=== PATIENT | female | born 1945 | race Caucasian/White ===

== ENCOUNTER 2019-01-21 14:11 | Inpatient (IN) ==
--- NOTE | 2019-01-21 14:52 | Diag Imaging Result Doc PS360 ---
EXAM: FLAT/UPRIGHT ABD/1 VIEW CHEST - 01/21/2019 HISTORY: pain constipation TECHNIQUE: Supine and upright abdomen one view chest COMPARISON: 03/05/2016 portable chest FINDINGS: There is mild gaseous small bowel distention. There is possible thickening of posterior markings along the colon. There are multiple air-fluid levels on the upright view. These findings may relate to enterocolitis. There is no free air identified. There are surgical clips at the right upper quadrant. There are postsurgical changes noted at the lumbar spine. Upright chest shows normal heart size. There are sternal wires from previous surgery. The lungs appear clear. There is no pleural effusion or pneumothorax identified. IMPRESSION: Bowel gas pattern which may relate to enterocolitis. Correlation with clinical evaluation is recommended. No evidence of acute cardiopulmonary disease. Electronically signed by Adrian Irizarry 01/21/2019 2:50 PM
[2019-01-21 15:32] LABS: BASO# 0.01 X1000 (0.0-0.2); BASO% 0.1 % (0.0-0.8); EOS# 0.06 X1000 (0.0-0.7); EOS% 0.6 % (0.0-10.0); HEMATOCRIT 36.6 % (37.0-47.0); IMM GRAN# 0.02 X1000 (0.0-0.04); IMM GRAN% 0.2 % (0.0-0.5); LYMPH# 1.62 X1000 (1.2-3.4); LYMPH% 17.2 % (20.5-51.1); MCH 28.7 PG (27-31); MCHC 32.8 g/dL (33-37); MCV 87.6 FL (81-99); MONO# 0.65 X1000 (0.11-0.59); MONO% 6.9 % (1.7-9.3); MPV 10.5 FL (7.4-10.4); NEUT# 7.04 X1000 (1.4-6.5); PLT 282 X1000 (130-400); RBC 4.18 XMIL (4.2-5.4); RDW 13.2 % (11.5-14.5)
[2019-01-21 16:14] LABS: AGAP 14; ALBUMIN 3.7 g/dL (3.5-5.0); ALKALINE PHOSPHATASE 186 U/L (32-104); BUN 15 mg/dL (8-22); CALCIUM 8.7 mg/dL (8.8-10.2); CHLORIDE 102 mmol/L (98-107); COSMO 289; CREATININE 0.8 mg/dL (0.5-0.9); ESTIMATED GFR > 60; GLUCOSE 217 mg/dL (70-104); GOT 18 U/L (10-30); GPT 19 U/L (10-36); LIPASE 13 U/L (13-60); POTASSIUM 3.3 mmol/L (3.5-5.1); SODIUM 141 mmol/L (136-145); TCO2 26 mmol/L (25-35)
[2019-01-21 16:34] LABS: OCCULT BLOOD 1 NEGATIVE (NEGATIVE)
--- NOTE | 2019-01-21 18:01 | Diag Imaging Result Doc PS360 ---
EXAM: CT ABD/PELVIS W/IV CONT ONLY - 01/21/2019 HISTORY: pain TECHNIQUE: CT abdomen/pelvis with intravenous contrast. No oral contrast administered per request of the referring provider. COMPARISON: 01/26/2017 CT renal stone search without contrast FINDINGS: The visualized lung bases appear essentially clear. The liver is mildly prominent in size but demonstrates homogeneous attenuation. There are no other substantial abnormalities of the liver, spleen, or adrenal glands identified. The pancreas is unremarkable except for some atrophic changes. The gallbladder surgically absent. The bilateral kidneys enhance homogeneously except for a small cyst at the upper left kidney. There is no hydronephrosis. There are no substantial enlarged lymph nodes identified. There is dilatation of proximal small bowel. The distal small bowel is not dilated. There is some wall thickening involving some of the distended small bowel. There is no specific obstructing lesion identified. Considerations include enteritis and/or small bowel obstruction. The appendix shows no obvious inflammation. There is mild uncomplicated colonic diverticulosis. There is no free air or abscess identified. There is a small amount of free fluid in the pelvis. IMPRESSION: Findings which may relate to enteritis and/or mid to distal small bowel obstruction. No abscess. No free air. Small amount of free fluid in pelvis. This exam was performed using automated exposure control, adjustment of mA or kV according to patient size, and/or use of iterative reconstruction technique. Electronically signed by Adrian Irizarry 01/21/2019 5:58 PM
[2019-01-21] MEDS: NS 1,000 ML IV SCH (18:45)
[2019-01-21] MEDS: LEVAQUIN 500 MG/D5W 500 MG/100 ML IVPB IV SCH (18:47)
[2019-01-21] MEDS: ZOFRAN IV PRN ×2 (18:55→23:03)
[2019-01-21 18:58] LABS: HEMOGLOBIN A1C 7.5 % (4.8-6.0)
[2019-01-21] MEDS: MORPHINE IV PRN ×2 (18:58→23:04)
--- NOTE | 2019-01-21 19:07 | PROVIDER DOCUMENTATION ---
This chart was entered by Mili Sharma Scribe, acting as scribe for Montrell Wills MD. HPI-Abdominal Pain/GI Problem - General Chief Complaint: Abdominal Pain Stated Complaint: EMTREME PAIN Time Seen by Provider: 01/21/19 16:26 Source: patient, family () Allergies/Adverse Reactions: Patient Allergies Allergy/AdvReac Type Severity Reaction Status Date / Time propoxyphene HCl * Allergy Severe Unknown Verified 09/09/18 19:51 [From Darvon] Sulfa (Sulfonamide Allergy Severe HIVES Verified 09/09/18 19:51 Antibiotics) Home Medications: Home Medication List Medication Instructions Recorded Confirmed Last Taken Type Lansoprazole [Prevacid] 30 mg PO DAILY 05/08/14 03/05/16 05/08/14 08:00 History Sumatriptan Succinate [Imitrex] 25 mg PO PRN PRN 05/08/14 03/05/16 05/07/14 History Hydrocodone/APAP 7.5 mg/325 mg 1 ea PO Q6H PRN PRN #14 tab 09/09/18 Unknown Rx [[place]-7.5] Tizanidine [Zanaflex] 4 mg PO Q8HR #14 tab 09/09/18 Unknown Rx - History of Present Illness-ABD Nature of Presenting Problems: 73 yowf presents to [facility] ed with c/o abdominal pain with nausea. pt sts has hx of SBO and has given herself a enema without relief. pt sts last bm was 1 week prior Abdominal Pain Onset Location: reports: generalized abdomen Pain Radiation: reports: no radiation Quality of Pain: reports: pressure, sharp Severity in ED: reports: moderate Onset/Duration: reports: 1 week ago Timing: reports: intermittent, getting worse (last night worsened) Activities at Onset: reports: light activity Exposure to sick contacts?: No Modifying Factors: improves with: nothing Associated Symptoms: reports: constipation, nausea. denies: back/neck pain, noa st pain, cough, diarrhea, fever/chills, shortness of breath, vomiting, weakness Last BM: 1 week ago Dark Stools Present?: reports: none noticed Rectal Bleeding: reports: none # of Diarrhea Episodes: 0 Rectal Pain: reports: none # of Vomiting Episodes: 0 (but severe nausea) Bruising or Bleeding Gums?: No Similar Symptoms Previously?: Yes (SBO) Recently seen or treated by another doctor?: No Review of Systems - Adult - REVIEW OF SYSTEMS - ADULT Constitutional: denies: chills, fever Eyes: reports: no symptoms reported Ears, Nose, Mouth & Throat: reports: no symptoms reported Cardiovascular: denies: chest pain, palpitations Respiratory: denies: cough, shortness of breath, wheezing Gastrointestinal: reports: see HPI, abdominal pain, constipation, nausea, poor appetite. denies: diarrhea, vomiting Genitourinary: reports: no symptoms reported Musculoskeletal: denies: back pain, neck pain Integumentary: reports: no symptoms reported Neurological: denies: dizziness/vertigo, headache/migraines Psychiatric: reports: no symptoms reported Endocrine: reports: no symptoms reported Hematologic/Lymphatic: reports: no symptoms reported Allergic/Immunologic: reports: no symptoms reported All Other Systems: Reviewed and Negative Past History - Adult - PAST MEDICAL HISTORY-ADULT Review of Records: reports: Nursing Assessment Review, Medications Reviewed Major Childhood Illnesses: reports: denies history Cardiovascular: reports: cardiac disease, HTN, hyperlipidemia, other (Stents) Respiratory: reports: COPD, sleep apnea Gastrointestinal: reports: GERD, inflammatory bowel disease, IBS, obstruction Obstetrical/Gynecological: reports: denies history Genitourinary: reports: denies history Musculoskeletal: reports: denies history Hand Dominance: Right Handed Neurological: reports: denies history Endocrine/Immune: reports: denies history Other Conditions: reports: denies history - PRIOR SURGERIES/PROCEDURES Surgical/Procedure History: reports: colonoscopy, CABG, cholecystectomy, other (Stents placed; ACDF; PLIF; ALIF) - PRIOR HOSPITALIZATIONS Prior Hospitalizations: reports: none - IMMUNIZATION STATUS Childhood Immunizations: See Nurse Assessment Flu Vaccine: See Nurse Assessment - FAMILY HISTORY Family History: reviewed, not pertinent - SOCIAL HISTORY Smoking: quit greater than 1 year Substance Use: alcohol Alcohol Use Frequency: occasionally Living Situation: family Physical Exam-General - PHYSICAL EXAM-ADULT Initial Vital Signs Reviewed: Yes - CONSTITUTIONAL General Appearance: alert, mild distress - EYES Eyes: PERRL/EOMI, pink conjunctivae - HEAD, EARS, NOSE, MOUTH & THROAT HENMT: moist mucous membranes, normal ENT inspection - NECK Neck: non-tender, full range of motion, supple, normal inspection - RESPIRATORY Respiratory: chest non-tender, lungs clear, normal breath sounds, no pleuratic chest pain, no respiratory distress, no accessory muscle use - CARDIOVASCULAR Cardiovascular: normal peripheral pulses, regular rate, rhythm - GASTROINTESTINAL (ABDOMEN) Abdominal Exam: normal bowel sounds, distended, guarding, tenderness (diffuse), McBurney's point tenderness, other (well healed scars to abdomen from multiple sx in past) - LYMPHATIC Lymphatic: no adenopathy - MUSCULOSKELETAL Back Exam: normal inspection, no CVA tenderness, no vertebral tenderness Extremity: normal range of motion, non-tender, normal gait, normal inspection, no pedal edema, no calf tenderness, normal capillary refill - SKIN Integumentary: normal color, normal turgor, warm/dry - NEUROLOGIC Neurologic: grossly normal, no motor/sensory deficits - PSYCHIATRIC Psych/Mental Status: normal mood/affect, normal thought content, normal thought process, oriented x 3 Progress - PLAN OF CARE/RESULTS Progress/Plan/Lab Results: Vital Signs - 8 hr 01/21/19 14:16 Temperature 98 F Pulse Rate 109 H Respiratory Rate 18 Blood Pressure 120/72 O2 Sat by Pulse Oximetry 95 Laboratory Results - last 24 hr 01/21/19 01/21/19 01/21/19 15:14 15:14 15:14 WBC 9.40 RBC 4.18 L Hgb 12.0 Hct 36.6 L MCV 87.6 MCH 28.7 MCHC 32.8 L RDW Std Deviation 13.2 Plt Count 282 MPV 10.5 H Immature Gran % (Auto) 0.2 Neut % (Auto) 75.0 Lymph % (Auto) 17.2 L [place] % (Auto) 6.9 Eos % (Auto) 0.6 Baso % (Auto) 0.1 Immature Gran # (Auto) 0.02 Neut # (Auto) 7.04 H Lymph # (Auto) 1.62 [place] # (Auto) 0.65 H Eos # (Auto) 0.06 Baso # (Auto) 0.01 Sodium 141 Potassium 3.3 L Chloride 102 Carbon Dioxide 26 Anion Gap 14 BUN 15 Creatinine 0.8 Estimated GFR/1.73 m2 > 60 BUN/Creatinine Ratio 19 Glucose 217 H Calculated Osmolality 289 Calcium 8.7 L Total Bilirubin 0.60 AST 18 ALT 19 Alkaline Phosphatase 186 H Total Protein 7.0 Albumin 3.7 Globulin 3.0 Albumin/Globulin Ratio 1.0 Amylase 26 Lipase 13 Orders Category Date Time Status NPO Diet 01/21/19 14:58 Active FLAT/UPRIGHT ABD/1 VIEW CHEST [RAD] Stat Exams 01/21/19 14:22 Completed AMYLASE [CHEM] Stat Lab 01/21/19 15:14 Completed CBC WITH ELECTRONIC DIFF [HEME] Stat Lab 01/21/19 15:14 Completed COMPREHENSIVE METABOLIC PANEL [CHEM] Stat Lab 01/21/19 15:14 Completed LIPASE [CHEM] Stat Lab 01/21/19 15:14 Completed Result Diagrams: 01/21/19 15:14 01/21/19 15:14 - XRAY 1 XRAY: Bilateral XRAY Study: Abdomen Impression: See EMR Report (EXAM: FLAT/UPRIGHT ABD/1 VIEW CHEST - 01/21/2019 HISTORY: pain constipation TECHNIQUE: Supine and upright abdomen one view chest COMPARISON: 03/05/2016 portable chest FINDINGS: There is mild gaseous small bowel distention. There is possible thickening of posterior markings along the colon. There are multiple air-fluid levels on the upright view. These findings may relate to enterocolitis. There is no free air identified. There are surgical clips at the right upper quadrant. There are postsurgical changes noted at the lumbar spine. Upright chest shows normal heart size. There are sternal wires from previous surgery. The lungs appear clear. There is no pleural effusion or pneumothorax identified. IMPRESSION: Bowel gas pattern which may relate to enterocolitis. Correlation with clinical evaluation is recommended. No evidence of acute cardiopulmonary disease. Electronically signed by Adrian Irizarry 01/21/2019 2:50 PM 01/21/19 1450 Interpreting Physician: Adrian Irizarry MD Dictated Date/Time: 01/21/19 1448 cc: Montrell Wills MD; None,PCP) Departure - Departure Date of Disposition Decision: 01/21/19 Time of Disposition Decision: 19:09 DIAGNOSIS: Small bowel obstruction Disposition: ADMITTED INPATIENT 09 Certified Medical Emergency: Emergent Condition: Stable Referrals and Follow-Ups: None,PCP [Primary Care Provider] - - Critical Care Note This patient required my direct & personal management of CC.: No Attestation - Physician/ MOE Attestation Patient care was provided by Advanced Practice Provider:: No The physician spent face to face time with patient:: Yes Advanced Practice Provider documentation review:: Supervising physician onsite and consulted in the evaluation and care of this patient. The physician did have a face to face encounter with the patient. This chart was documented by the indicated scribe, (Mili Sharma Scribe) and accurately reflects the services I performed and decisions made by me, Montrell Wills MD, as attested by the provider's signature.
[2019-01-21] MEDS: FLAGYL 500 MG/NS 500 MG/100 ML IVPB IV SCH (19:55)
--- NOTE | 2019-01-21 20:14 | HISTORY AND PHYSICAL ---
PRIMARY CARE PHYSICIAN: Dr. Maury Gates. CHIEF COMPLAINT: Abdominal pain. HISTORY OF PRESENT ILLNESS: Ms. Wright is a 73-year-old female with a history of coronary artery disease, hypertension, and borderline diabetes mellitus, who presents with abdominal pain since . She had insidious onset that progressed to outright abdominal pain in the lower quadrants. She has been extremely nauseous but has not had any vomiting. No diarrhea. She denies fever or chills. Just intense pain. She actually reports having had a small bowel obstruction before, and has had surgery for repair. In the ER, she had labs and diagnostics done. She was noted to have some hyperglycemia, but otherwise negative. Her abdomen/pelvis CT with IV contrast revealed findings which may be related to enteritis and/or mid to distal small bowel obstruction. Her vital signs are stable. We are going to admit her for further treatment and evaluation. PAST MEDICAL HISTORY: 1. CAD. 2. Hypertension. 3. Obstructive sleep apnea. 4. COPD. 5. Hyperlipidemia. PAST SURGICAL HISTORY: Coronary stenting, cervical spine fusion, lumbar spine fusion, cholecystectomy, small bowel obstruction repair, bilateral foot surgery. SOCIAL HISTORY: She is a former smoker. She denies drug use. She drinks very rarely. Her is at the bedside. FAMILY HISTORY: Significant for coronary artery disease and colon cancer. REVIEW OF SYSTEMS: A 14-point review of systems was obtained and found to be negative with the exception of the HPI. ALLERGIES: Propoxyphene and sulfa. HOME MEDICATIONS: Yet to be compiled by the staff. Will reconcile once in the computer. PHYSICAL EXAMINATION: VITAL SIGNS: Blood pressure 124/65, heart rate 102, respiratory rate 20, O2 saturation 94% on room air, temperature 98 Fahrenheit. GENERAL: This is a [id number] 73-year-old female lying in the hospital bed in no acute distress. NEUROLOGIC: She is awake, alert and oriented. Follows commands. No focal deficits. HEENT: Head is atraumatic and normocephalic. Pupils are equal, round and reactive to light. Oral mucosa is dry. NECK: Trachea is midline. There is no JVD. CHEST: Diminished at the bases but clear to auscultation. CV: Regular rate and rhythm. S1 and S2 is noted. There are no murmurs. GI: Distended and diffusely quite tender to palpation. Bowel sounds are hypoactive in the lower quadrants. EXTREMITIES: Without edema,clubbing or cyanosis. Pulses 1+ bilaterally. DIAGNOSTIC DATA: CT abdomen and pelvis shows enteritis versus small bowel obstruction. WBCs 9.4, hemoglobin 12, hematocrit 36.6, platelet count 282. Sodium 141, potassium 3.3, chloride 102. CO2 is 26, anion gap 14, BUN 15, creatinine 0.8, glucose 217, calcium 8.7. AST 18, ALT 19, alkaline phosphatase 186. Albumin 3.7. Occult blood in the stool is negative. Lipase is 13. ASSESSMENT/PLAN: 1. Enteritis versus small bowel obstruction: Will admit the patient for bowel rest and IV fluids. Will continue antiemetics and very light pain medicine. Will check serial KUBs. If no improvement in the morning, will consult with Surgery and may need to send her over to [facility]. We have also added IV antibiotics for the possibility of enterocolitis. 2. Hypokalemia: Will check magnesium and replace her potassium and check daily electrolytes, replacing as necessary. 3. Coronary artery disease: The patient denies any chest pain or dyspnea. We will follow telemetry and continue with appropriate medications, with the exception of aspirin. 4. Hypertension: Stable. Continue home medications once reconciled. 5. Diabetes mellitus. Will check a hemoglobin A1c. Add pattern sugars and sliding-scale insulin. 6. Deep venous thrombosis prophylaxis with Lovenox. 7. Further recommendations to follow. Dictated by ANITA Mtz for Santiago Simmons MD cc: ANITA Mtz MD [facility]
[2019-01-21] MEDS: LOVENOX SUBQ SCH (21:13)
[2019-01-21] MEDS: POTASSIUM CHLORIDE 20 MEQ/SWI 20 MEQ/100 ML IVPB IV SCH (21:13)
[2019-01-21] MEDS: HUMULIN R SUBQ SCH (23:03)
[2019-01-22] MEDS: FLAGYL 500 MG/NS 500 MG/100 ML IVPB IV SCH ×5 (00:09→23:56)
[2019-01-22] MEDS: POTASSIUM CHLORIDE 20 MEQ/SWI 20 MEQ/100 ML IVPB IV SCH (01:33)
[2019-01-22] MEDS ORDERED: BLISTEX MEDICATED BERRY LIP BALM TOP PRN (01:34)
[2019-01-22 04:35] LABS: BILIRUBIN URINE NEGATIVE (NEGATIVE); BLOOD URINE NEGATIVE (NEGATIVE); CLARITY CLEAR (CLEAR); COLOR YELLOW; GLUCOSE URINE NEGATIVE (NEGATIVE); KETONE URINE TRACE mg/dL (NEGATIVE); LEUKOCYTES URINE TRACE (NEGATIVE); NITRITE URINE NEGATIVE (NEGATIVE); PH URINE 6.5; PROTEIN URINE 1+(30 mg/dL) mg/dL (NEGATIVE); SP GRAVITY URINE 1.005; URINE SOURCE CLEAN CATCH; UROBILINOGEN URINE NORMAL
[2019-01-22] MEDS: MORPHINE IV PRN ×4 (04:35→21:36)
[2019-01-22 04:50] LABS: URINE BACTERIA 2+ /HFP; URINE EPITHELIAL CELLS <10 /HPF (<10); URINE RBC <10 /HPF (<10); URINE WBC <10 /HPF (<10)
[2019-01-22] MEDS: HUMULIN R SUBQ SCH ×2 (06:13→11:49)
--- NOTE | 2019-01-22 07:31 | Diag Imaging Result Doc PS360 ---
EXAM: KUB ABDOMEN HISTORY: sbo TECHNIQUE: Abdomen two views COMPARISON: 01/21/2019 FINDINGS: There is at least one air distended loop of small bowel in the left abdomen. There are fewer distended loops on the current exam unless they are now fluid-filled. The colon is not obstructed. No organomegaly. The gallbladder has been removed. There has been extensive surgery to the lower back. IMPRESSION: Mild interval improvement Electronically signed by Cm Cali 01/22/2019 7:29 AM
[2019-01-22 07:56] LABS: AGAP 8; BUN 15 mg/dL (8-22); CALCIUM 8.1 mg/dL (8.8-10.2); CHLORIDE 106 mmol/L (98-107); COSMO 285; CREATININE 0.8 mg/dL (0.5-0.9); ESTIMATED GFR > 60; GLUCOSE 146 mg/dL (70-104); HEMATOCRIT 32.2 % (37.0-47.0); MCHC 31.1 g/dL (33-37); MCV 90.2 FL (81-99); MPV 11.1 FL (7.4-10.4); RBC 3.57 XMIL (4.2-5.4); RDW 13.3 % (11.5-14.5); SODIUM 141 mmol/L (136-145); TCO2 28 mmol/L (25-35); WBC 5.71 X1000 (4.8-10.8)
[2019-01-22] MEDS: NS 1,000 ML IV SCH (09:26)
[2019-01-22] MEDS: ZOFRAN IV PRN ×2 (09:27→17:46)
--- NOTE | 2019-01-22 09:53 | HISTORY AND PHYSICAL ---
ADDENDUM: Patient seen and examined by myself on the . Full note dictated and discussed with nurse practitioner. Patient presented to the hospital with abdominal pain. It is felt to be either enteritis or a small bowel obstruction by CT. We will admit her to the hospital. IV fluids, IV pain control, keep NPO, and we will follow. cc: Santiago Simmons MD
[2019-01-22] MEDS: HUMULIN R (PARKWAY) SUBQ SCH ×2 (17:22→21:36)
[2019-01-22] MEDS: LEVAQUIN 500 MG/D5W 500 MG/100 ML IVPB IV SCH (17:31)
[2019-01-22] MEDS: LOVENOX SUBQ SCH (17:46)
[2019-01-22] MEDS: PHENERGAN IV PRN (21:36)
--- NOTE | 2019-01-22 21:38 | PROGRESS NOTE ---
DATE: 01/22/2019 SUBJECTIVE: Patient notes she is still having abdominal pain, difficult to know if she is feeling better as she can answer question. PHYSICAL: Temperature 97.4 degrees, pulse 99, respiratory 18, BP 101/47.General: Patient is awake, alert, she is in no current distress. HEENT: Normocephalic. Neck: Supple. CV: Regular rate. Chest: Clear nonlabored. Abdomen: Soft, clinically appears less tender, she is having bowel sounds today which is an improvement. Extremities: Moves all extremities. ASSESSMENT: 1. Abdominal pain. CT showed enteritis versus small bowel obstruction, she is currently having some bowel sounds although does not appear to be having any bowel movements yet, will continue to follows . 2. Hyperkalemia . 3. Coronary artery disease. 4. Diabetes. PLAN: Will continue patient in the hospital, will advance diet to clear liquids. She has had constipation for quite some time, if this does not improve she will need to have an enema. cc: Santiago Simmons MD MTD
[2019-01-22] MEDS: SODIUM CHLORIDE 0.9% 10 ML ONE (21:45)
[2019-01-23] MEDS: NS 1,000 ML IV SCH ×2 (03:18→16:55)
[2019-01-23] MEDS: MORPHINE IV PRN ×5 (03:19→20:33)
[2019-01-23] MEDS: SODIUM CHLORIDE 0.9% 10 ML ONE ×2 (03:19→03:20)
[2019-01-23] MEDS: PHENERGAN IV PRN (03:19)
[2019-01-23] MEDS: ZOFRAN IV PRN ×4 (05:26→20:32)
[2019-01-23] MEDS: FLAGYL 500 MG/NS 500 MG/100 ML IVPB IV SCH ×3 (06:08→18:23)
[2019-01-23] MEDS: HUMULIN R (PARKWAY) SUBQ SCH ×4 (06:24→22:02)
[2019-01-23 07:42] LABS: HEMATOCRIT 30.4 % (37.0-47.0); HEMOGLOBIN 9.3 g/dL (12.0-16.0); MCH 28.2 PG (27-31); MCHC 30.6 g/dL (33-37); MCV 92.1 FL (81-99); MPV 10.9 FL (7.4-10.4); RBC 3.3 XMIL (4.2-5.4); RDW 13.3 % (11.5-14.5); WBC 5.93 X1000 (4.8-10.8)
[2019-01-23 07:58] LABS: AGAP 10; BUN 12 mg/dL (8-22); CALCIUM 7.9 mg/dL (8.8-10.2); CHLORIDE 108 mmol/L (98-107); COSMO 288; CREATININE 0.9 mg/dL (0.5-0.9); ESTIMATED GFR > 60; GLUCOSE 162 mg/dL (70-104); POTASSIUM 3.9 mmol/L (3.5-5.1); SODIUM 143 mmol/L (136-145); TCO2 26 mmol/L (25-35)
--- NOTE | 2019-01-23 11:53 | Diag Imaging Result Doc PS360 ---
EXAM: KUB ABDOMEN 01/23/2019 HISTORY: sbo TECHNIQUE: KUB COMMENT: There is a nonspecific bowel gas pattern with gas throughout most of the colon. This was also the case on 01/22/2019. There is no appreciable small bowel dilatation on the current examination. There is some gas in the stomach without evidence of distention. IMPRESSION: Nonspecific abdomen. Electronically signed by Keith Tafoya 01/23/2019 11:51 AM
[2019-01-23] MEDS: LOVENOX SUBQ SCH (18:23)
--- NOTE | 2019-01-23 18:36 | PROGRESS NOTE ---
DATE: 01/23/2019 SUBJECTIVE: She still has pain, but feels better. No nausea. She feels hungrier. She would like to try to eat more food if possible. OBJECTIVE: Vital Signs: Blood pressure is 93/69, heart rate 90, respiratory rate 18. Her temperature, though, has been kind of up and down, low-grade fever 100.2, 100.4. Cardiovascular: Regular rate and rhythm. Pulmonary: Bilateral breath sounds. Clear to auscultation. Gastrointestinal: Soft, nontender, nondistended. Bowel sounds are positive. LABORATORY DATA: Her white count is 5, hemoglobin and hematocrit is 9 and 30, platelets 225,000. Basic was normal. She is heme negative. PROBLEM LIST: 1. Pain, possible enteritis. Her x-rays look like possible small bowel obstruction, but her most recent x-rays were negative. So, I am not quite sure what is causing her discomfort. She does not appear to be constipated and her CT showed some dilated small bowel, no obstruction though. In any case, patient was felt, I am going to advance her diet. It really does not look like she has got obstruction, although she does have some dilation of her abdominal wall, but she has air all the way down to her rectum. No stool. We will work on trying to get her feeling better. I am going to continue empiric antibiotics because she is febrile. 2. Hyperkalemia. That is resolved. 3. CAD. I guess we will advance her to a diabetic diet. We will continue to follow. 4. Disposition pending her clinical status, but overall she seems improved. cc: Oswaldo Lala MD
[2019-01-23] MEDS: LEVAQUIN 500 MG/D5W 500 MG/100 ML IVPB IV SCH (20:22)
[2019-01-23] MEDS: SINEMET 25/100 PO SCH (20:39)
[2019-01-23] MEDS: LIPITOR PO SCH (20:40)
[2019-01-24] MEDS: NS 1,000 ML IV SCH ×3 (00:09→12:17)
[2019-01-24] MEDS: FLAGYL 500 MG/NS 500 MG/100 ML IVPB IV SCH ×2 (01:30→05:30)
[2019-01-24] MEDS: PHENERGAN IV PRN ×2 (01:39→21:18)
[2019-01-24] MEDS: MORPHINE IV PRN ×2 (01:40→21:18)
[2019-01-24] MEDS: HUMULIN R (PARKWAY) SUBQ SCH ×4 (06:35→23:27)
[2019-01-24] MEDS ORDERED: OFIRMEV 1000 MG/ISOTONIC SOLN 1,000 MG/100 ML BOTTLE IV ONE (07:15)
[2019-01-24 07:38] LABS: HEMATOCRIT 30.7 % (37.0-47.0); HEMOGLOBIN 9.4 g/dL (12.0-16.0); MCH 28.4 PG (27-31); MCHC 30.6 g/dL (33-37); MCV 92.7 FL (81-99); MPV 10.7 FL (7.4-10.4); RBC 3.31 XMIL (4.2-5.4); RDW 13.5 % (11.5-14.5); WBC 10.21 X1000 (4.8-10.8)
[2019-01-24] MEDS: ZOFRAN IV PRN (07:38)
[2019-01-24 07:51] LABS: AGAP 9; BUN 14 mg/dL (8-22); CALCIUM 7.9 mg/dL (8.8-10.2); CHLORIDE 106 mmol/L (98-107); COSMO 285; CREATININE 0.9 mg/dL (0.5-0.9); ESTIMATED GFR > 60; GLUCOSE 165 mg/dL (70-104); MAGNESIUM 1.5 mg/dL (1.5-2.7); POTASSIUM 3.9 mmol/L (3.5-5.1); SODIUM 141 mmol/L (136-145); TCO2 26 mmol/L (25-35)
[2019-01-24] MEDS: TOPROL XL PO SCH (09:20)
[2019-01-24] MEDS: PROZAC PO SCH (09:21)
--- NOTE | 2019-01-24 09:21 | Diag Imaging Result Doc PS360 ---
EXAM: CT ABD/PELVIS W/ORAL CONT ONLY - 01/24/2019 HISTORY: NO BOWEL SOUND/ABD PAIN TECHNIQUE: CT abdomen/pelvis with oral contrast only. No intravenous contrast administered per request of the referring provider. COMPARISON: 01/21/2019 CT abdomen/pelvis with IV contrast FINDINGS: There has been development of a small right pleural effusion with adjacent dependent atelectasis or consolidation at the posterior base of chest. There has been development of a tiny left pleural effusion. There has been interval decrease in small bowel distention compared the prior exam. Some of the oral contrast remains in small bowel, but some of the contrast has passed into the colon and rectum. There is been interval decrease in small bowel wall thickening compared to prior. There is uncomplicated colonic diverticulosis. There is no free air or abscess identified. There is no substantial free fluid identified. There are no acute abnormalities of the liver, spleen, adrenal glands, pancreas, or kidneys identified. The gallbladder surgically absent. IMPRESSION: Development of small right and tiny left pleural effusions. Development of some dependent atelectasis or consolidation at the posterior right base. Small amount at the posterior right base is not excluded. Decrease in small bowel distention compared to prior. Decrease in small bowel wall thickening compared to prior. No abscess. No free air. This exam was performed using automated exposure control, adjustment of mA or kV according to patient size, and/or use of iterative reconstruction technique. Electronically signed by Adrian Irizarry 01/24/2019 9:19 AM
[2019-01-24] MEDS ORDERED: MERREM 1 GM in NS 50 ML IV SCH (10:45)
[2019-01-24] MEDS ORDERED: OFIRMEV 1000 MG/ISOTONIC SOLN 1,000 MG/100 ML BOTTLE IV PRN (10:46)
[2019-01-24] MEDS ORDERED: DUONEB (A & A) INH PRN (10:47)
[2019-01-24] MEDS: MAXIPIME 2 GM in NS 100 ML IV SCH ×2 (11:51→23:26)
[2019-01-24] MEDS: DUONEB (A & A) INH SCH ×3 (12:10→21:36)
[2019-01-24 12:49] LABS: INFLUENZA A NEGATIVE (NEGATIVE); INFLUENZA B NEGATIVE (NEGATIVE)
[2019-01-24 12:53] LABS: OCCULT BLOOD 1 NEGATIVE (NEGATIVE)
[2019-01-24] MEDS ORDERED: ZANTAC PO ONE (16:59)
[2019-01-24] MEDS ORDERED: PRILOSEC PO ONE (16:59)
[2019-01-24] MEDS: TYLENOL PO PRN (17:44)
[2019-01-24] MEDS: LOVENOX SUBQ SCH (17:45)
--- NOTE | 2019-01-24 20:06 | PROGRESS NOTE ---
DATE: 01/24/2019 SUBJECTIVE: The patient has no major complaints. This morning she had some nausea but she has not had any. Now she has some diarrhea, where she did not have any. OBJECTIVE: Blood pressure is 117/70, heart rate of 85, respiratory rate 18, temperature 98.4 degrees. Cardiovascular: Regular rate and rhythm. Pulmonary: Bilateral breath sounds, clear to auscultation. GI: Soft, nontender, nondistended. Bowel sounds are positive. LABORATORY DATA: White count is 10, hemoglobin and hematocrit 9 and 30, platelets 206,000. Basic was normal. Heme negative. C. difficile negative. White blood cells negative. Ova and parasites, all of that is negative at this point or pending. ASSESSMENT AND PLAN: 1. Pneumonia. I think she has some pneumonia now. This was causing her fevers. She has been empirically placed on cefepime for [id number] pneumonia, because she has developed it since she has been here. Fevers have thus far abated, but she did have a temperature of 101.9 degrees this morning. 2. Enteritis, small-bowel obstruction. That seems to be resolving. We will continue to follow. 3. Disposition pending her clinical status, but I think if she tolerates a diet and is afebrile, we could possibly let her go home soon, within the next 24 hours. 4. Diabetes appears to be overall improved. 5. Disposition pending her clinical status, but I think she is at a point where we can try to get her home soon, hopefully in the next 1 to 2 days. cc: Oswaldo Lala MD
[2019-01-24] MEDS ORDERED: SODIUM CHLORIDE 0.9% 10 ML ONE (21:17)
[2019-01-24] MEDS: LIPITOR PO SCH (21:18)
[2019-01-24] MEDS: SINEMET 25/100 PO SCH (21:18)
[2019-01-24] MEDS: SODIUM CHLORIDE 0.9% 10 ML ONE (21:18)
[2019-01-25] MEDS: PHENERGAN IV PRN ×2 (02:59→21:35)
[2019-01-25] MEDS: HUMULIN R (PARKWAY) SUBQ SCH ×4 (06:10→21:35)
[2019-01-25] MEDS: PRILOSEC PO SCH (06:10)
[2019-01-25 07:49] LABS: AGAP 8; BUN 13 mg/dL (8-22); CALCIUM 7.6 mg/dL (8.8-10.2); CHLORIDE 107 mmol/L (98-107); COSMO 284; CREATININE 0.8 mg/dL (0.5-0.9); ESTIMATED GFR > 60; GLUCOSE 179 mg/dL (70-104); MAGNESIUM 1.4 mg/dL (1.5-2.7); POTASSIUM 3.4 mmol/L (3.5-5.1); SODIUM 140 mmol/L (136-145); TCO2 26 mmol/L (25-35)
[2019-01-25 07:53] LABS: BASO# 0.01 X1000 (0.0-0.2); BASO% 0.1 % (0.0-0.8); EOS# 0.04 X1000 (0.0-0.7); EOS% 0.4 % (0.0-10.0); HEMATOCRIT 26.2 % (37.0-47.0); HEMOGLOBIN 8.3 g/dL (12.0-16.0); IMM GRAN# 0.05 X1000 (0.0-0.04); IMM GRAN% 0.5 % (0.0-0.5); LYMPH# 0.99 X1000 (1.2-3.4); LYMPH% 9.5 % (20.5-51.1); MCH 28.7 PG (27-31); MCHC 31.7 g/dL (33-37); MCV 90.7 FL (81-99); MONO# 0.71 X1000 (0.11-0.59); MONO% 6.8 % (1.7-9.3); MPV 10.9 FL (7.4-10.4); NEUT# 8.58 X1000 (1.4-6.5); NEUT% 82.7 % (42.2-75.2); PLT 189 X1000 (130-400); RBC 2.89 XMIL (4.2-5.4); RDW 13.4 % (11.5-14.5); WBC 10.38 X1000 (4.8-10.8)
[2019-01-25] MEDS: DUONEB (A & A) INH SCH ×3 (09:08→22:28)
[2019-01-25] MEDS: PROZAC PO SCH (09:24)
[2019-01-25] MEDS: TOPROL XL PO SCH (09:24)
[2019-01-25] MEDS ORDERED: VANCOMYCIN IV PER PHARMACY MISC SCH (10:45)
--- NOTE | 2019-01-25 10:46 | Diag Imaging Result Doc PS360 ---
EXAM: CHEST-2 VIEWS HISTORY: hypoxia TECHNIQUE: Chest two views COMPARISON: 01/21/2019 FINDINGS: Interval development of infiltrates in the lower right lung with atelectasis. Small pleural effusions. Sternal wires are present. The heart is not enlarged. IMPRESSION: Interval development of basilar infiltrates and small pleural effusions Electronically signed by Cm Cali 01/25/2019 10:43 AM
[2019-01-25] MEDS: MAXIPIME 2 GM in NS 100 ML IV SCH (11:52)
[2019-01-25] MEDS ORDERED: VANCOMYCIN 1,550 MG in NS 250 ML IV ONE (12:00)
[2019-01-25] MEDS ORDERED: MAGNESIUM SULFATE 2 GM/S.W.I. 2 GM/50 ML IVPB IV ONE (15:51)
[2019-01-25] MEDS ORDERED: KLOR-CON PO ONE (15:51)
[2019-01-25] MEDS ORDERED: LASIX IV ONE (17:52)
[2019-01-25] MEDS ORDERED: IMODIUM PO PRN (17:53)
--- NOTE | 2019-01-25 18:16 | PROGRESS NOTE ---
DATE: 01/25/2019 SUBJECTIVE: The patient's abdominal pain is better. She is eating better, but not 100%. No nausea, no vomiting. She does have some watery diarrhea over the last couple of days. OBJECTIVE: Blood pressure 118/53, heart rate of 76, respiratory rate of 16, temperature 98.5 degrees. Cardiovascular: Regular rate and rhythm. Pulmonary: Bilateral breath sounds. Clear to auscultation. GI was soft, nontender, nondistended. Bowel sounds are positive. LABORATORY DATA: White count 10, hemoglobin and hematocrit 8 and 26, which is a pretty big drop. Platelets 189,000. Potassium 3.4, magnesium 1.4. ASSESSMENT AND PLAN: 1. Pneumonia. She has some bibasilar pneumonia which is felt to be gram-negative type. Her temperature has improved. She did get as high as 99.9 degrees this morning, but that is it, so she has so far been afebrile on the cefepime. 2. Enteritis, small-bowel obstruction. She has been constipated and now she is having some watery diarrhea. Her stool studies have thus far been negative. Stool culture is negative. White blood cells were negative. Ova and parasites is pending and her Clostridium difficile was negative. Hemoccult was negative. Most likely kind of a viral process. 3. Diabetes is stable. 4. Coronary artery disease, status post coronary artery bypass graft. She seems to be doing okay from that standpoint. There may be a little bit of component of overload. We will give her a little bit of diuretic and see how she does. 5. Disposition. I think if she is stable and no fevers, anticipate discharge tomorrow. cc: Oswaldo Lala MD
[2019-01-25] MEDS: LOVENOX SUBQ SCH (18:56)
[2019-01-25] MEDS: LIPITOR PO SCH (20:07)
[2019-01-25] MEDS: SINEMET 25/100 PO SCH (20:08)
[2019-01-25] MEDS: ZOFRAN IV PRN (20:24)
[2019-01-25] MEDS: MORPHINE IV PRN (21:35)
[2019-01-26] MEDS: MAXIPIME 2 GM in NS 100 ML IV SCH ×3 (00:06→23:19)
[2019-01-26] MEDS: ZOFRAN IV PRN (01:13)
[2019-01-26] MEDS: HUMULIN R (PARKWAY) SUBQ SCH ×4 (06:22→21:23)
[2019-01-26] MEDS: PRILOSEC PO SCH ×2 (06:22→13:09)
[2019-01-26 07:48] LABS: BASO# 0.02 X1000 (0.0-0.2); BASO% 0.3 % (0.0-0.8); EOS# 0.12 X1000 (0.0-0.7); EOS% 1.6 % (0.0-10.0); HEMATOCRIT 27.3 % (37.0-47.0); HEMOGLOBIN 8.4 g/dL (12.0-16.0); IMM GRAN# 0.03 X1000 (0.0-0.04); IMM GRAN% 0.4 % (0.0-0.5); LYMPH# 1.27 X1000 (1.2-3.4); LYMPH% 16.5 % (20.5-51.1); MCH 27.9 PG (27-31); MCHC 30.8 g/dL (33-37); MCV 90.7 FL (81-99); MONO% 9.1 % (1.7-9.3); MPV 10.5 FL (7.4-10.4); NEUT# 5.54 X1000 (1.4-6.5); NEUT% 72.1 % (42.2-75.2); PLT 198 X1000 (130-400); RBC 3.01 XMIL (4.2-5.4); RDW 13.7 % (11.5-14.5); WBC 7.68 X1000 (4.8-10.8)
[2019-01-26 07:59] LABS: AGAP 10; BUN 9 mg/dL (8-22); CALCIUM 7.6 mg/dL (8.8-10.2); CHLORIDE 104 mmol/L (98-107); COSMO 286; CREATININE 0.8 mg/dL (0.5-0.9); ESTIMATED GFR > 60; GLUCOSE 149 mg/dL (70-104); POTASSIUM 3.4 mmol/L (3.5-5.1); SODIUM 143 mmol/L (136-145); TCO2 29 mmol/L (25-35)
[2019-01-26] MEDS: CULTURELLE FOR KIDS PO SCH ×6 (08:55→18:40)
[2019-01-26] MEDS: PROZAC PO SCH (08:57)
[2019-01-26] MEDS: TOPROL XL PO SCH (08:57)
[2019-01-26] MEDS: DUONEB (A & A) INH SCH ×3 (09:54→22:36)
[2019-01-26] MEDS: VANCOMYCIN 1,200 MG in NS 250 ML IV SCH (12:51)
--- NOTE | 2019-01-26 18:03 | PROGRESS NOTE ---
DATE: 01/26/2019 SUBJECTIVE: She is looking well. She is eating a bit better. Abdominal pain is better. She is still having diarrhea, but it is less bowel movements. OBJECTIVE: Blood pressure is 132/57, heart rate of 76, respiratory rate of 20, temperature 99 degrees, 100% on 2 L, but she was 87% on room air.Cardiovascular: Regular rate and rhythm. Pulmonary: Bilateral breath sounds clear to auscultation. Gastrointestinal: Soft, nontender, nondistended. Bowel sounds are positive. LABORATORY DATA: White count 7, hemoglobin 8, hematocrit 27, platelets 198,000. Potassium is 3.4. PROBLEM LIST: 1. Pneumonia with hypoxic respiratory failure. We will continue antibiotics. She is afebrile, but now she has a persistent oxygen requirement, but she does have a history of sleep apnea and COPD, so this may be part of that. We will set her up for home oxygen. I am going to do a little bit of diuresis overnight to see if we can try to get maybe her breathing a little bit better. 2. Enteritis. That seems to be resolving. Her stool studies are completely negative. 3. Diabetes is stable on her current regimen. 4. Coronary artery disease. She seems to be stable. Continue regular medications. DISPOSITION: Anticipate discharge tomorrow, but it looks like we will need to set up home oxygen, and we can likely discharge her on oxygen. cc: Oswaldo Lala MD
[2019-01-26] MEDS: LASIX IV SCH (18:43)
[2019-01-26] MEDS: LOVENOX SUBQ SCH (18:45)
[2019-01-26] MEDS: SINEMET 25/100 PO SCH (21:23)
[2019-01-26] MEDS: LIPITOR PO SCH (21:23)
[2019-01-26] MEDS ORDERED: MELATONIN PO SCH (23:15)
[2019-01-27] MEDS: TYLENOL PO PRN (00:20)
[2019-01-27] MEDS: LASIX IV SCH (05:30)
[2019-01-27] MEDS: PRILOSEC PO SCH ×2 (05:30→11:39)
[2019-01-27] MEDS: HUMULIN R (PARKWAY) SUBQ SCH ×3 (06:52→16:58)
[2019-01-27 07:37] LABS: BASO# 0.02 X1000 (0.0-0.2); BASO% 0.3 % (0.0-0.8); EOS# 0.25 X1000 (0.0-0.7); EOS% 3.3 % (0.0-10.0); HEMATOCRIT 29.6 % (37.0-47.0); HEMOGLOBIN 9.3 g/dL (12.0-16.0); IMM GRAN# 0.03 X1000 (0.0-0.04); IMM GRAN% 0.4 % (0.0-0.5); LYMPH# 1.33 X1000 (1.2-3.4); LYMPH% 17.3 % (20.5-51.1); MCH 28.4 PG (27-31); MCHC 31.4 g/dL (33-37); MCV 90.2 FL (81-99); MONO# 0.76 X1000 (0.11-0.59); MONO% 9.9 % (1.7-9.3); MPV 10.9 FL (7.4-10.4); NEUT% 68.8 % (42.2-75.2); PLT 243 X1000 (130-400); RBC 3.28 XMIL (4.2-5.4); RDW 13.7 % (11.5-14.5); WBC 7.69 X1000 (4.8-10.8)
[2019-01-27] MEDS: DUONEB (A & A) INH SCH ×2 (07:55→16:05)
[2019-01-27 08:08] LABS: AGAP 12; BUN 10 mg/dL (8-22); CALCIUM 7.8 mg/dL (8.8-10.2); CHLORIDE 99 mmol/L (98-107); COSMO 285; CREATININE 0.8 mg/dL (0.5-0.9); ESTIMATED GFR > 60; GLUCOSE 155 mg/dL (70-104); POTASSIUM 2.8 mmol/L (3.5-5.1); SODIUM 142 mmol/L (136-145); TCO2 31 mmol/L (25-35)
--- NOTE | 2019-01-27 08:26 | Diag Imaging Result Doc PS360 ---
EXAM: CHEST-PORTABLE HISTORY: dyspnea TECHNIQUE: Single view of the chest was performed portably. COMPARISON: 01/25/2019 FINDINGS: Heart size is within normal limits. There are median sternotomy wires. There is increasing right basilar airspace ease and effusion. Probable trace left effusion as well. Plate fixation lower cervical spine. IMPRESSION: Increasing right basilar airspace disease and effusion. Electronically signed by Darling Munoz 01/27/2019 8:24 AM
[2019-01-27 08:37] VITALS: BP 114/55
[2019-01-27] MEDS: TOPROL XL PO SCH (09:48)
[2019-01-27] MEDS: PROZAC PO SCH (09:48)
[2019-01-27] MEDS: CULTURELLE FOR KIDS PO SCH ×2 (09:48→12:46)
[2019-01-27] MEDS ORDERED: KLOR-CON PO ONE (10:43)
[2019-01-27] MEDS: MAXIPIME 2 GM in NS 100 ML IV SCH (11:44)
[2019-01-27] MEDS: VANCOMYCIN 1,200 MG in NS 250 ML IV SCH (12:35)
--- NOTE | 2019-01-27 22:01 | DISCHARGE SUMMARY ---
ADMISSION DATE: 01/21/2019 DISCHARGE DATE: 01/27/2019 ADMISSION DIAGNOSES: 1. Enteritis versus small bowel obstruction. 2. Hypokalemia. 3. Coronary artery disease. 4. Hypertension. 5. Diabetes mellitus. DISCHARGE DIAGNOSES: 1. Pneumonia with hypoxemic respiratory failure. Anticipating will need discharge with home oxygen. 2. Enteritis. 3. Diabetes, stable. 4. Coronary artery disease. CONSULTATIONS: None. SURGERIES/PROCEDURES: None. HOSPITAL COURSE: Ms. Radha Wright is a 73-year-old female with a history of coronary artery disease, hypertension, and borderline diabetes mellitus who presented with abdominal pain, and she had been having it since a few days before admission. The pain was located in the lower quadrants. She was nauseous but had no vomiting, just intense pain and no other symptoms. She states she had had a small bowel obstruction before and had to have surgical repair of that. She had an abdominopelvic CT without contrast showing that she had enteritis or mid to distal small bowel obstruction. Her vitals were stable, and she was admitted. Was started on IV fluids. Bowel rest, light pain medication, and IV antibiotics for enteritis were initiated. She did have a low potassium level that was replaced. She had coronary disease, and her home medications were resumed for that, but no chest pain. Her hypertension remained stable. She had diarrhea while she was here, and then she was found to have pneumonia, and she was starting to have fevers from that, so she was empirically started on cefepime. Her fever had actually gotten up to 101.9. The enteritis or small bowel obstruction resolved. She had stool studies performed which were all negative. Labs were stable, except she did have a low potassium level this morning, which she has had replaced with 40 mEq of KCl because her potassium level was 2.8. Glucose levels remained elevated, but she is going to go home with glipizide. For the pneumonia, she will go home with Omnicef. She will also be going home with probiotics for her stomach. DISCHARGE VITAL SIGNS: Temperature 97.8, heart rate 81, respiratory rate 17, blood pressure 114/55, O2 saturation 100% on 2 liters nasal cannula. She is going to be evaluated for home O2. DISCHARGE LABORATORY DATA: White blood cells 7000, hemoglobin 9, hematocrit 29, platelet count 243. Sodium 142, potassium 2.8, BUN 10, creatinine 0.8, glucose 155. Calcium 7.8, magnesium 1.8. Microbiology: All microorganisms negative. PERTINENT IMAGING: On 01/21/2019 she had abdominal x-rays which showed a bowel gas pattern which may be related to enterocolitis. So then they did an abdominopelvic CT with findings which were thought maybe to be related to enteritis and/or mid to distal small bowel obstruction. Then on 01/22/2019, repeated x-ray of the abdomen showed improvement. On the she had another x-ray of the abdomen which was nonspecific. On the she had a repeat abdominopelvic CT which showed development of small right and tiny left pleural effusions, some atelectasis or consolidation at the right lung base, decrease in small bowel distention, decrease in small bowel thickening. X- ray on the showed interval development of basilar infiltrates and small pleural effusions. X- ray on the showed increasing right basilar air space disease and effusion. DISCHARGE DIET: Diabetic. DISCHARGE ACTIVITY: As tolerated. DISCHARGE FOLLOWUP: None. DISCHARGE MEDICATIONS: 1. Benadryl 25 mg p.o. every 6 hours. 2. Fluoxetine 20 mg p.o. daily. 3. Glipizide 10 mg p.o. daily. 4. Imitrex 25 mg p.o. p.r.n. 5. Kenalog topical to rash. 6. Lipitor 80 mg p.o. daily. 7. Melatonin 1 tab p.o. at night p.r.n. 8. Phenergan 25 mg p.o. every 6 hours. 9. Sinemet 25/100 one tab p.o. nightly. 10.Toprol XL 50 mg p.o. daily. 11.Lactobacillus/acidophilus 1 p.o. twice daily 12.Omnicef 300 mg p.o. twice daily DISCHARGE INSTRUCTIONS: If your condition changes, contact your physician and/or return to the emergency department. Changes may include but are not limited to: Shortness of breath, increased fatigue, excess bleeding, unexplained weight loss or gain, unimaginable pain, or signs or symptoms of infection. DISCHARGE DISPOSITION: Home. Dictated by ANITA Wilson for Oswaldo Lala MD cc: ANITA Wilson MD
--- NOTE | 2019-01-28 03:40 | PROGRESS NOTE ---
DATE: 01/27/2019 SUBJECTIVE: Patient has no major complaints except she does not want to wear her oxygen, but her abdominal pain is resolved. No more diarrhea. She is overall improved. Potassium is a little low at 2.8. White count is 7. She is hypoxic only with exertion. I think she would qualified last night and then she qualified. We discussed that we would likely need to discharge her on oxygen. Her chest x-ray shows persistent right basilar airspace disease with, if anything, has increased a bit, that is despite diuresis. However, clinically, she is afebrile. White count is normal. ASSESSMENT AND PLAN: She has a persistent oxygen requirement, but I do not think that is going to resolve itself, per se. I think she is stable for discharge on Omnicef, breathing treatment, and her regular medications. We did end up setting her up with oxygen with exertion. This is a [id number] encounter note with ANITA Wilson. cc: Oswaldo Lala MD
== END 2019-01-27 16:53 | disposition home or self-care (01) | DRG 391 ==
LOC: P.ED 14:11 → SUATTDRO 21:18 → P.MEDSURG 21:18
PROVIDERS: ATTEND Internal Medicine
CPT/HCPCS: 71010; 71020; 71045; 71046; 74000; 74018; 74022; 74176; 74177; 80048; 80053; 81001; 82150; 82270; 82948; 83036; 83630; 83690; 83735; 85025; 85027; 87040; 87045; 87046; 87088; 87177; 87205; 87275; 87276; 87324; 87427; 87449; 87798; 87804; 87899; 88313; 89055; 94640; 94761; 94799; 96365; 96367; 96372; 96375; 99285; A9270; J0131; J0692; J1650; J1815; J1940; J1956; J2270; J2405; J2550; J3370; J3475; J3480; J7030; J7050; Q9967; S0030; XXXXX

== ENCOUNTER 2019-06-03 13:27 | Inpatient (IN) ==
[2019-06-03 14:11] LABS: BASO# 0.01 X1000 (0.0-0.2); BASO% 0.1 % (0.0-0.8); EOS# 0.04 X1000 (0.0-0.7); EOS% 0.6 % (0.0-10.0); HEMATOCRIT 35.1 % (37.0-47.0); HEMOGLOBIN 11.7 g/dL (12.0-16.0); IMM GRAN# 0.01 X1000 (0.0-0.04); IMM GRAN% 0.1 % (0.0-0.5); LYMPH# 1.96 X1000 (1.2-3.4); MCH 30.4 PG (27-31); MCHC 33.3 g/dL (33-37); MCV 91.2 FL (81-99); MONO# 0.63 X1000 (0.11-0.59); MONO% 9.3 % (1.7-9.3); MPV 10.1 FL (7.4-10.4); NEUT% 60.9 % (42.2-75.2); PLT 281 X1000 (130-400); RBC 3.85 XMIL (4.2-5.4); RDW 13.1 % (11.5-14.5); WBC 6.75 X1000 (4.8-10.8)
[2019-06-03 14:34] LABS: ALBUMIN 4.1 g/dL (3.5-5.0); POTASSIUM 3.5 mmol/L (3.5-5.1); TOTAL BILIRUBIN 0.6 mg/dL (0.20-1.00); TOTAL PROTEIN 7.2 g/dL (6.3-8.3)
[2019-06-03 14:48] LABS: URINE SOURCE CLEAN CATCH
[2019-06-03 14:55] LABS: BILIRUBIN URINE 1+ (NEGATIVE); BLOOD URINE NEGATIVE (NEGATIVE); CLARITY CLEAR (CLEAR); COLOR YELLOW; GLUCOSE URINE NEGATIVE (NEGATIVE); KETONE URINE NEGATIVE (NEGATIVE); SP GRAVITY URINE 1.025
[2019-06-03 14:56] LABS: LEUKOCYTES URINE NEGATIVE (NEGATIVE); NITRITE URINE NEGATIVE (NEGATIVE); PROTEIN URINE TRACE mg/dL (NEGATIVE); UROBILINOGEN URINE NORMAL
[2019-06-03 15:06] LABS: URINE BACTERIA 1+ /HFP; URINE CAST NONE SEEN /LPF; URINE CRYSTAL URIC ACID PRESENT /HPF; URINE EPITHELIAL CELLS <10 /HPF (<10); URINE WBC <10 /HPF (<10); URINE YEAST NONE SEEN /HPF
--- NOTE | 2019-06-03 15:21 | Diag Imaging Result Doc PS360 ---
EXAM: ABDOMEN FLAT/UPRIGHT HISTORY: pain TECHNIQUE: Flat and upright, two views COMPARISON: 01/23/2019 FINDINGS: There are multiple air distended loops of small bowel with air-fluid levels. The gallbladder has been removed. No organomegaly. There has been extensive surgery to the lower lumbar spine. There are multiple pelvic phleboliths. IMPRESSION: Small bowel obstruction Electronically signed by Cm Cali 06/03/2019 3:19 PM
[2019-06-03] MEDS ORDERED: PHENERGAN IV ONE (15:24)
[2019-06-03] MEDS ORDERED: DEMEROL IV ONE (15:24)
[2019-06-03] MEDS ORDERED: SODIUM CHLORIDE 0.9% INJ ONE (15:24)
--- NOTE | 2019-06-03 16:10 | HISTORY AND PHYSICAL ---
PRIMARY CARE PHYSICIAN: Dr. Luis Nelson. CHIEF COMPLAINT: Abdominal pain generalized and nausea, vomiting, and diarrhea for the past 2 days that has progressively worsened. HISTORY OF PRESENTING ILLNESS: This is a 73-year-old female who presents to [facility] ER with complaints of generalized abdominal pain, nausea, vomiting, and diarrhea for 2 days that have progressively worsened. States that she gave herself an enema recently. She has had a history of small bowel obstructions. Her workup showed an abdomen x-ray with a small bowel obstruction. I discussed this case by the ER physician with on-call surgery, who wants the patient admitted and transferred to the [facility], [place]. She will be admitted for further evaluation and treatment. PAST MEDICAL HISTORY: Coronary artery disease, hypertension, obstructive sleep apnea, COPD, hyperlipidemia, and small bowel obstruction. PAST SURGICAL HISTORY: Coronary stenting, cervical spine fusion, lumbar spine fusion, cholecystectomy, small bowel obstruction repair and bilateral foot surgery. FAMILY HISTORY: Significant for coronary artery disease and colon cancer. SOCIAL HISTORY: She is a former smoker. Denies any drug use. Lives with her . ALLERGIES: Propoxyphene and sulfa. HOME MEDICATIONS: A current list will need to be obtained, reconciled, reviewed and restarted as appropriate. Will place an order for nursing to update and confirm home medications. LABORATORY DATA: Showed a white blood cell count of 6.75, hemoglobin of 11.7, hematocrit 35.1, platelets of 281. Sodium of 141, potassium of 3.5, chloride 100, CO2 28, BUN of 20, creatinine of 1, glucose 196. Urinalysis was negative. DIAGNOSTIC DATA: Abdomen x-ray showed a small bowel obstruction. REVIEW OF SYSTEMS: She denied any fever, chills, blurred vision, dizziness, chest pain, coughing, shortness of breath. She is positive for generalized abdominal pain, nausea, vomiting, and diarrhea. Denied any burning or hurting with urination. PHYSICAL EXAMINATION: VITAL SIGNS: On arrival she had a temperature of 97.8 degrees, pulse 94, respirations 20, blood pressure 136/71, satting 97% on room air. GENERAL: This is a 73-year-old female, who is lying in the bed and answers questions appropriately. HENT: Normocephalic, atraumatic. Normal ENT inspection. Oropharynx and nares are clear. EYES: Pupils are equal, round, reactive to light and accommodation. Extraocular movements are intact. NECK: Normal inspection. Normal range of motion. LUNGS: Clear to auscultation bilaterally with equal lung expansion and chest wall movement. HEART: Regular rate and rhythm. No murmurs, rubs, or gallops. ABDOMEN: Firm and distended. Tenderness to palpation, worse in her lower quadrants with guarding noted. Bowel sounds are hypoactive x4 quadrants. MUSCULOSKELETAL: She has 5/5 strength x4 extremities. NEUROLOGICAL: The cranial nerves 2-12 appear grossly intact. ASSESSMENT: 1. Small bowel obstruction. 2. Generalized abdominal pain. 3. Nausea, vomiting and diarrhea. PLAN: We are going to obtain a CT of the abdomen and pelvis here. Then, she will be transferred and admitted to the [facility], [place]. Held n.p.o. Placed on telemetry. We will update and confirm home medications. Consult General Surgery. Place on Dilaudid 1 mg IV q. 3 hours p.r.n., normal saline at 125 mL an hour, Zofran 4 mg IV q. 4 hours p.r.n., SCDs for DVT prophylaxis. Further orders after seen by attending and by training consultant. Dictated by ANITA Chavez for Santiago Simmons MD cc: ANITA Chavez MD Micah A. Howard, MD
--- NOTE | 2019-06-03 16:29 | Diag Imaging Result Doc PS360 ---
EXAM: CT ABD/PELVIS W/IV CONT ONLY HISTORY: abdominal pain TECHNIQUE: CT abdomen and pelvis with intravenous contrast COMPARISON: 01/24/2019 FINDINGS: The gallbladder has been removed. Normal liver, spleen, pancreas, adrenal glands, and kidneys. No hydronephrosis. Prominent atherosclerosis. No aortic aneurysm. There are multiple dilated air and fluid distended loops of small bowel. The distal small bowel loops are not dilated. Normal appendix. No abscess. There are scattered colonic diverticula. The urinary bladder is not distended. The uterus has been removed. No pelvic mass. There has been extensive surgery to the lower lumbar spine. IMPRESSION: 1.Small bowel obstruction 2.Cholecystectomy 3.Hysterectomy 4.Colonic diverticulosis This exam was performed using automated exposure control, adjustment of mA or kV according to patient size, and/or use of iterative reconstruction technique. Electronically signed by Cm Cali 06/03/2019 4:27 PM
--- NOTE | 2019-06-03 16:32 | PROVIDER DOCUMENTATION ---
This chart was entered by Kathi Juan Scribe, acting as scribe for Montrell Wills MD. HPI-Abdominal Pain/GI Problem - General Chief Complaint: Abdominal Pain Stated Complaint: ABD PAIN Time Seen by Provider: 06/03/19 13:46 Source: patient Allergies/Adverse Reactions: Patient Allergies Allergy/AdvReac Type Severity Reaction Status Date / Time propoxyphene HCl * Allergy Severe Unknown Verified 09/09/18 19:51 [From Darvon] Sulfa (Sulfonamide Allergy Severe HIVES Verified 09/09/18 19:51 Antibiotics) Home Medications: Home Medication List Medication Instructions Recorded Confirmed Last Taken Type Sumatriptan Succinate [Imitrex] 25 mg PO PRN PRN 05/08/14 01/22/19 01/07/19 08:00 History Atorvastatin Calcium [Lipitor] 80 mg PO DAILY 01/22/19 01/22/19 01/19/19 08:00 History Carbidopa/Levodopa [Sinemet 25/100] 1 tab PO HS 01/22/19 01/22/19 01/18/19 22:00 History Diphenhydramine HCl [Benadryl 25 mg PO Q6H PRN PRN 01/22/19 01/22/19 01/18/19 20:00 History Allergy] Fluoxetine HCl 20 mg PO DAILY 01/22/19 01/22/19 01/19/19 08:00 History Glipizide [Glipizide ER] 10 mg PO DAILY 01/22/19 01/22/19 01/19/19 08:00 History Melatonin/Pyridoxine HCl (B6) 1 ea PO HS PRN PRN 01/22/19 01/22/19 01/18/19 22:00 History [Melatonin 3 mg Tablet] Metoprolol Succinate E.r. [Toprol 50 mg PO DAILY 01/22/19 01/22/19 01/19/19 08:00 History Xl] Promethazine [Phenergan] 25 mg PO Q6H PRN PRN 01/22/19 01/22/19 01/21/19 10:30 History Triamcinolone 0.1% Oint [Kenalog 1 applicatn TOP DAILY 01/22/19 01/22/1901/03 08:00 History 0.1% Ointment] CefDINIR [Omnicef] 300 mg PO BID #14 cap 01/26/19 Unknown Rx Lactobacillus Acidophilus 1 ea PO BID #60 cap 01/26/19 Unknown Rx [Acidophilus Lactobacillus] Albuterol Sulfate Inhaler 2 puff INH [id number] #1 inhaler 01/27/19 Unknown Rx [Ventolin Hfa] - History of Present Illness-ABD Nature of Presenting Problems: 73 y/o female presents to ED with generalized abdominal pain and N/V/D onset 2 days ago. Pt reports she gave herself an enema recently. Pt states she has hx bowel obstructions. Pt is alert and oriented. Abdominal Pain Onset Location: reports: generalized abdomen Pain Radiation: reports: no radiation Quality of Pain: reports: stabbing Severity in ED: reports: moderate Onset/Duration: reports: 2 days ago Timing: reports: still present Activities at Onset: reports: none Exposure to sick contacts?: No Modifying Factors: worse with: palpation Associated Symptoms: reports: diarrhea, nausea, vomiting, other (generalized abdominal pain) Last BM: this afternoon Dark Stools Present?: reports: none noticed Rectal Bleeding: reports: none Rectal Pain: reports: none Similar Symptoms Previously?: No Recently seen or treated by another doctor?: No Review of Systems - Adult - REVIEW OF SYSTEMS - ADULT Constitutional: denies: chills, fever Eyes: reports: no symptoms reported Ears, Nose, Mouth & Throat: reports: no symptoms reported Cardiovascular: denies: chest pain, palpitations Respiratory: denies: cough, shortness of breath Gastrointestinal: reports: abdominal pain, diarrhea, nausea, vomiting Genitourinary: reports: no symptoms reported Musculoskeletal: denies: back pain, joint pain Integumentary: reports: no symptoms reported Neurological: denies: dizziness/vertigo, seizure Psychiatric: reports: no symptoms reported Endocrine: reports: no symptoms reported Hematologic/Lymphatic: reports: no symptoms reported Allergic/Immunologic: reports: no symptoms reported All Other Systems: Reviewed and Negative Past History - Adult - PAST MEDICAL HISTORY-ADULT Review of Records: reports: Old Records Reviewed, Nursing Assessment Review, Medications Reviewed Major Childhood Illnesses: reports: denies history Cardiovascular: reports: cardiac disease, CAD, HTN, hyperlipidemia, other (Stents) Respiratory: reports: COPD, sleep apnea Gastrointestinal: reports: GERD, inflammatory bowel disease, IBS, obstruction Obstetrical/Gynecological: reports: denies history Genitourinary: reports: denies history Musculoskeletal: reports: denies history Neurological: reports: denies history Endocrine/Immune: reports: Diabetes Other Conditions: reports: denies history - PRIOR SURGERIES/PROCEDURES Surgical/Procedure History: reports: colonoscopy, CABG, cholecystectomy, other (Stents placed; ACDF; PLIF; ALIF; small intestine; feet) - PRIOR HOSPITALIZATIONS Prior Hospitalizations: reports: none - IMMUNIZATION STATUS Childhood Immunizations: See Nurse Assessment Flu Vaccine: See Nurse Assessment - FAMILY HISTORY Family History: reviewed, not pertinent - SOCIAL HISTORY Smoking: quit greater than 1 year Substance Use: none/never Alcohol Use Frequency: rarely Living Situation: family Physical Exam-General - PHYSICAL EXAM-ADULT Initial Vital Signs Reviewed: Yes - CONSTITUTIONAL General Appearance: appears well, alert, no apparent distress - EYES Eyes: PERRL/EOMI, pink conjunctivae - HEAD, EARS, NOSE, MOUTH & THROAT HENMT: normocephalic/atraumatic, moist mucous membranes, normal ENT inspection - NECK Neck: non-tender, full range of motion - RESPIRATORY Respiratory: chest non-tender, lungs clear, normal breath sounds - CARDIOVASCULAR Cardiovascular: normal peripheral pulses, regular rate, rhythm - GASTROINTESTINAL (ABDOMEN) Abdominal Exam: normal bowel sounds, guarding, tenderness (diffuse; worse on the lower quadrants) - MUSCULOSKELETAL Back Exam: normal inspection, no CVA tenderness, no vertebral tenderness Extremity: normal range of motion, non-tender - SKIN Integumentary: normal color, warm/dry - NEUROLOGIC Neurologic: grossly normal - PSYCHIATRIC Psych/Mental Status: normal mood/affect, normal thought content, normal thought process, oriented x 3 Progress - PLAN OF CARE/RESULTS Progress/Plan/Lab Results: Vital Signs - 8 hr 06/03/19 13:32 Temperature 97.8 F Pulse Rate 94 H Respiratory Rate 20 Blood Pressure 136/71 O2 Sat by Pulse Oximetry 97 Orders Category Date Time Status Saline Loc NOW Care 06/03/19 13:36 Active CBC WITH DIFF [HEME] Stat Lab 06/03/19 13:56 Ordered COMPREHENSIVE METABOLIC PANEL [CHEM] Stat Lab 06/03/19 13:56 Ordered URINALYSIS [URINALYSIS] Stat Lab 06/03/19 13:37 Uncollected Laboratory Tests 06/03/19 06/03/19 06/03/19 13:58 13:58 14:40 WBC 6.75 RBC 3.85 L Hgb 11.7 L Hct 35.1 L MCV 91.2 MCH 30.4 MCHC 33.3 RDW Std Deviation 13.1 Plt Count 281 MPV 10.1 Immature Gran % (Auto) 0.1 Neut % (Auto) 60.9 Lymph % (Auto) 29.0 Mathews % (Auto) 9.3 Eos % (Auto) 0.6 Baso % (Auto) 0.1 Immature Gran # (Auto) 0.01 Neut # (Auto) 4.10 Lymph # (Auto) 1.96 Mathews # (Auto) 0.63 H Eos # (Auto) 0.04 Baso # (Auto) 0.01 Sodium 141 Potassium 3.5 Chloride 100 Carbon Dioxide 28 Anion Gap 14 BUN 20 Creatinine 1.0 H Estimated GFR/1.73 m2 55 BUN/Creatinine Ratio 20 Glucose 196 H Calculated Osmolality 289 Calcium 9.0 Total Bilirubin 0.60 AST 12 ALT 15 Alkaline Phosphatase 158 H Total Protein 7.2 Albumin 4.1 Globulin 3.0 Albumin/Globulin Ratio 1.0 Urine Source CLEAN CATCH Urine Color YELLOW Urine Clarity CLEAR Urine pH 6.0 Ur Specific Barnhart 1.025 Urine Protein TRACE A Urine Ketones NEGATIVE Urine Blood NEGATIVE Urine Nitrite NEGATIVE Urine Bilirubin 1+ A Urine Urobilinogen NORMAL Urine Microscopic RBC Not Reportable Urine WBC NEGATIVE Urine Microscopic WBC <10 Ur Epithelial Cells <10 Urine Crystals URIC ACID PRESENT Urine Bacteria 1+ Urine Casts NONE SEEN Urine Yeast NONE SEEN Urine Glucose NEGATIVE Result Diagrams: 06/03/19 13:58 06/03/19 13:58 - XRAY 1 XRAY Study: Abdomen Impression: See EMR Report ([facility] - [address] [place] [address] [address], [place] [address] [facility] - [address] [place] [address] Department of Imaging Patient: [facility] Date: 06/03/19MR#: [id number] : 1945DM Status: REG ERAcct#: [id number] Age/Sex: 73/FRoom/Bed: Loc: P.ED Ordering Physician: Montrell Wills MD Family Physician: Luis Nelson MD Reason for Procedure: pain Signed EXAM: ABDOMEN FLAT/UPRIGHT HISTORY: pain TECHNIQUE: Flat and upright, two views COMPARISON: 01/23/2019 FINDINGS: There are multiple air distended loops of small bowel with air-fluid levels. The gallbladder has been removed. No or ganomegaly. There has been extensive surgery to the lower lumbar spine. There are multiple pelvic phleboliths. IMPRESSION: Small bowel obstruction Electronically signed by Cm aCli 06/03/2019 3:19 PM 06/03/19 4052 Interpreting Physician: Cm Cali MD Dictated Date/Time: 06/03/19 1518 cc: Montrell Wills MD; Luis Nelson MD) - CT/MRI 1 CT Study: Abdomen, Pelvis Impression: See EMR Report ([facility] - [address] [place] [address], [address], [place] [address] [facility] - [address] [place] [address] Department of Imaging Patient: [facility] Date: 06/03/19#: [id number] : 1945DM Status: ADM INAcct#: [id number] Age/Sex: 73/FRoom/Bed: 401-ALoc: 4N Ordering Physician: Montrell Wills MD Family Physician: Luis Nelson MD Reason for Procedure: abdominal pain Signed EXAM: CT ABD/PELVIS W/IV CONT ONLY HISTORY: abdominal pain TECHNIQUE: CT abdomen and pelvis with intravenous contrast COMPARISON: 01/24/2019 FINDINGS: The gallbladder has been removed. Normal liver, spleen, pancreas, adrenal glands, and kidneys. No hydronephrosis. Prominent atherosclerosis. No aortic aneurysm. There are multiple dilated air and fluid distended loops of small bowel. The distal small bowel loops are not dilated. Normal appendix. No abscess. There are scattered colonic diverticula. The urinary bladder is not distended. The uterus has been removed. No pelvic mass. There has been extensive surgery to the lower lumbar spine. IMPRESSION: 1.Small bowel obstruction 2.Cholecystectomy 3.Hysterectomy 4.Colonic diverticulosis This exam was performed using automated exposure control, adjustment of mA or kV according to patient size, and/or use of iterative reconstruction technique. Electronically signed by Cm Cali 06/03/2019 4:27 PM 06/03/19 1627 Interpreting Physician: Cm Cali MD Dictated Date/Time: 06/03/194 cc: Montrell Wills MD; Luis Nelson MD) - CONSULTS/PCP/HOSPITALIST Notification #1 *Consult/PCP/Hospitalist*: Dr. Ramirez Time Discussed: 15:30 Reason/Comments: SBO Consult Disposition: Admit (to [facility]) #2 Consult: ANITA Ayala for hospitalist Time Discussed: 15:37 Reason/Comments: SBO Consult Disposition: Admit (to [facility]) #3 Consult: Dr. Ramirez Time Discussed: 16:33 Reason/Comments: CT results Consult Disposition: Admit (to [facility]; place NG tube) Departure - Departure Date of Disposition Decision: 06/03/19 Time of Disposition Decision: 15:38 DIAGNOSIS: Small bowel obstruction Disposition: ADMITTED INPATIENT 09 Certified Medical Emergency: Emergent Condition: Stable - Critical Care Note This patient required my direct & personal management of CC.: No Attestation - Physician/ MOE Attestation Patient care was provided by Advanced Practice Provider:: No The physician spent face to face time with patient:: Yes Advanced Practice Provider documentation review:: Supervising physician onsite and consulted in the evaluation and care of this patient. The physician did have a face to face encounter with the patient. This chart was documented by the indicated scribe, (Kathi Juan Scribe) and accurately reflects the services I performed and decisions made by , Montrell Wills MD, as attested by the provider's signature.
[2019-06-03] MEDS ORDERED: ATIVAN IV ONE (17:03)
--- NOTE | 2019-06-03 18:10 | Diag Imaging Result Doc PS360 ---
EXAM: CHEST/ABD TUBE PLACEMENT HISTORY: tube placement TECHNIQUE: Chest abdomen single view COMPARISON: 2:59 PM FINDINGS: Interval placement of a nasogastric tube. This overlies the esophagus and stomach and appears to be in good position. Electronically signed by Cm Cali 06/03/2019 6:08 PM
[2019-06-03] MEDS: NS 1,000 ML IV SCH (20:24)
[2019-06-03] MEDS: DILAUDID IV PRN (20:25)
[2019-06-03] MEDS: ZOFRAN IV PRN (20:25)
--- NOTE | 2019-06-03 21:10 | GENERAL SURGERY CONSULTATION ---
DATE: 06/03/2019 REASON FOR CONSULTATION: Small-bowel obstruction. HISTORY OF PRESENT ILLNESS: This is a 73-year-old female who was in her usual state of health until 2 days ago. She began having abdominal pressure throughout the day, which became sharp diffuse abdominal pain that night. She describes it as constant and 11/10 in severity, but it has been that way the whole time. She does report worsening pain with movement, coughing, laughing, etc. It is lessened somewhat when she lies still. It is associated with multiple episodes of nausea and vomiting as well as some episodes of diarrhea. Her last emesis was earlier this afternoon. She had a similar episode 2 other times in the past 7 years. One required an exploratory laparotomy and what sounds like a lysis of adhesions. The other time was treated nonoperatively. She reports subjective fever and chills as well. PAST MEDICAL HISTORY: Diabetes, hypercholesterolemia, hypertension, coronary artery disease, obstructive sleep apnea. PAST SURGICAL HISTORY: Triple bypass; laparoscopic cholecystectomy; cervical spine fusion; multiple lumbar spine fusions or other lumbar spine procedures, one with an anterior abdominal approach; exploratory laparotomy for bowel obstruction; bilateral foot surgery; also partial hysterectomy. ALLERGIES: Darvon and sulfa. SOCIAL HISTORY: She denies tobacco. She drinks alcohol occasionally. She lives with her . No illicit drug use. FAMILY HISTORY: Significant for coronary artery disease. Her mother had some type of intestinal cancer and her father had diabetes. HOME MEDICATIONS: Imitrex, Lipitor, Sinemet, Prozac, glipizide, Toprol, Phenergan and melatonin. REVIEW OF SYSTEMS: Ten systems reviewed and negative except as noted above. PHYSICAL EXAMINATION: Vital Signs: Temperature 97.9 degrees, pulse 106, respirations 18, blood pressure 142/27, O2 saturation 99%. General: Elderly female who looks her stated age, in no acute distress. HEENT: Normocephalic, atraumatic. Extraocular muscles intact. Pupils equal, round and reactive to light. Sclerae anicteric. Mucous membranes are dry. NG tube is in place, with scant output. Neck: Supple. No thyromegaly. Cardiovascular: Tachycardic and regular. Respiratory: Clear bilateral breath sounds. No work of breathing. Gastrointestinal: Soft, mildly distended. Diffusely tender with some degree of rebound present. No organomegaly, mass or hernias appreciated. She has a well-healed midline laparotomy. Extremities: No clubbing, cyanosis or edema. Skin: Warm and dry. No rash. Musculoskeletal: Moves all extremities equally and well. LABORATORY DATA: CBC and complete metabolic profile reviewed and unremarkable. Urinalysis reviewed and unremarkable. DIAGNOSTIC DATA: Abdominal x-ray and CT scan were reviewed, and they are consistent with a small- bowel obstruction. No free air or free fluid in the abdomen. She also has colonic diverticulosis, but no pericolonic inflammatory process is seen. ASSESSMENT AND PLAN: A 73-year-old female with small-bowel obstruction, likely mechanical in nature secondary to previous operations. She does have some peritoneal irritation. We will observe her overnight. If she does not improve or if she worsens, we will proceed with exploratory laparotomy. I agree with the normal saline at 100 to 125 an hour as well as the nasogastric tube placement. We will recheck an abdominal x-ray in the morning, her labs and physical exam. cc: Joseph Ramirez MD
[2019-06-04] MEDS: ZOFRAN IV PRN ×4 (00:32→17:05)
[2019-06-04] MEDS: DILAUDID IV PRN ×4 (00:32→17:05)
[2019-06-04] MEDS: NS 1,000 ML IV SCH (05:48)
[2019-06-04 05:55] LABS: EOS# 0.03 X1000 (0.0-0.7); EOS% 0.5 % (0.0-10.0); HEMATOCRIT 33.7 % (37.0-47.0); HEMOGLOBIN 10.1 g/dL (12.0-16.0); LYMPH# 1.52 X1000 (1.2-3.4); LYMPH% 26.8 % (20.5-51.1); MCH 28.5 PG (27-31); MCV 95.2 FL (81-99); MONO# 0.57 X1000 (0.11-0.59); MONO% 10.1 % (1.7-9.3); MPV 10.5 FL (7.4-10.4); NEUT# 3.55 X1000 (1.4-6.5); NEUT% 62.6 % (42.2-75.2); PLT 239 X1000 (130-400); RBC 3.54 XMIL (4.2-5.4); RDW 13.5 % (11.5-14.5); WBC 5.67 X1000 (4.8-10.8)
[2019-06-04 06:58] LABS: AGAP 13; BUN 24 mg/dL (8-22); CALCIUM 8.5 mg/dL (8.8-10.2); CHLORIDE 106 mmol/L (98-107); COSMO 292; CREATININE 0.9 mg/dL (0.5-0.9); ESTIMATED GFR > 60; GLUCOSE 188 mg/dL (70-104); POTASSIUM 4.2 mmol/L (3.5-5.1); SODIUM 142 mmol/L (136-145); TCO2 23 mmol/L (25-35)
--- NOTE | 2019-06-04 08:04 | GENERAL SURGERY PROGRESS NOTE ---
DATE: 06/04/2019 SUBJECTIVE: The patient complains of abdominal pain but does admit that it is slightly improved compared to last night. She has also had nausea and vomiting. OBJECTIVE: She is afebrile. Pulse 112 to 115 this morning, blood pressure stable, O2 saturation 98%. Urine output not recorded. NG tube only 200 mL. General: She is awake, alert, and oriented x3. No acute distress. CV: Tachycardic and regular. Respiratory: Bilateral breath sounds. No work of breathing. Gastrointestinal: Soft, nondistended. Moderately tender but notably without rebound or guarding today. She does have a few bowel sounds present. Laboratory: White blood cell count 5.6, hemoglobin 10, hematocrit 33.7. Electrolytes reviewed and unremarkable. Imaging: Her abdominal x-ray is pending. ASSESSMENT AND PLAN: A 73-year-old female with small-bowel obstruction. She is mildly improved this morning. We will continue with conservative care and observation. Nothing per oral for now and continue the nasogastric tube. cc: Joseph Ramirez MD
--- NOTE | 2019-06-04 08:16 | Diag Imaging Result Doc PS360 ---
FLAT/UPRIGHT ABD/1 VIEW CHEST - 06/04/2019 INDICATION: sbo TECHNIQUE: COMPARISON: 06/03/2019 FINDINGS: There is a nasogastric tube with the tip at the gastroesophageal junction. Recommend advancement by a few centimeters. There has been improvement in the gas distended small bowel loops in the central and left abdomen. There is now some colon gas. No free air. IMPRESSION: 1. Nasogastric tube tip is at the gastroesophageal junction. Recommend advancing. 2. Improvement in the small bowel gaseous distention compatible with obstruction. Electronically signed by Wale Pagan 06/04/2019 8:14 AM
[2019-06-04] MEDS: CHLORASEPTIC SPRAY MT PRN (15:19)
[2019-06-05] MEDS: DILAUDID IV PRN ×4 (01:10→20:37)
[2019-06-05] MEDS: ZOFRAN IV PRN ×4 (01:10→20:37)
[2019-06-05] MEDS: NS 1,000 ML IV SCH ×3 (02:24→20:41)
[2019-06-05 05:37] LABS: BASO# 0.02 X1000 (0.0-0.2); BASO% 0.3 % (0.0-0.8); EOS# 0.02 X1000 (0.0-0.7); EOS% 0.3 % (0.0-10.0); HEMATOCRIT 30.9 % (37.0-47.0); HEMOGLOBIN 9.3 g/dL (12.0-16.0); IMM GRAN# 0.05 X1000 (0.0-0.04); IMM GRAN% 0.7 % (0.0-0.5); LYMPH# 1.94 X1000 (1.2-3.4); LYMPH% 26.5 % (20.5-51.1); MCH 29.3 PG (27-31); MCHC 30.1 g/dL (33-37); MCV 97.5 FL (81-99); MONO# 0.79 X1000 (0.11-0.59); MONO% 10.8 % (1.7-9.3); MPV 10.2 FL (7.4-10.4); NEUT% 61.4 % (42.2-75.2); PLT 233 X1000 (130-400); RBC 3.17 XMIL (4.2-5.4); RDW 13.4 % (11.5-14.5); WBC 7.32 X1000 (4.8-10.8)
[2019-06-05 06:03] LABS: AGAP 7; BUN 21 mg/dL (8-22); CALCIUM 8.1 mg/dL (8.8-10.2); CHLORIDE 109 mmol/L (98-107); COSMO 291; CREATININE 0.9 mg/dL (0.5-0.9); ESTIMATED GFR > 60; GLUCOSE 150 mg/dL (70-104); SODIUM 143 mmol/L (136-145); TCO2 27 mmol/L (25-35)
--- NOTE | 2019-06-05 07:35 | Diag Imaging Result Doc PS360 ---
EXAM: FLAT/UPRIGHT ABD/1 VIEW CHEST INDICATION: sbo TECHNIQUE: 3 views COMPARISON: 06/04/2019 FINDINGS: The NG tube has been advanced somewhat. The tip projects several centimeters inferior to the diaphragm in a more optimal position. There has been improvement of gaseous distention of small bowel and colon since the previous study. There is now only trace small bowel gas in the left lower quadrant. No large volume free abdominal gas is appreciated. Inspiration is slightly suboptimal. There is mild subsegmental atelectasis at the lung bases. No other new consolidation is identified. Cardiac silhouette is stable. IMPRESSION: Interval improvement of gaseous distention of small bowel and colon. Electronically signed by Magdaleno Hansen 06/05/2019 7:32 AM
--- NOTE | 2019-06-05 08:54 | HISTORY AND PHYSICAL ---
ADDENDUM: The patient seen and examined by myself. Full note dictated and discussed with nurse practitioner. The patient presented to the hospital with abdominal pain. She has had a history of small bowel obstruction in the past. CT shows that seems to be the case again. We will transfer her to [facility] and ask Surgery to evaluate. cc: MD Joseph Nam MD
--- NOTE | 2019-06-05 10:48 | GENERAL SURGERY PROGRESS NOTE ---
DATE: 06/05/2019 SUBJECTIVE: The patient reports ongoing abdominal pain, but slightly improved compared to admission. She also reports ongoing nausea. She has passed gas once. OBJECTIVE: Vital Signs: She is afebrile. Vital signs are stable. Heart rate is in the 80s to low 100s. Urine output: Multiple voids are recorded. One bowel movement is recorded, although the patient did not report a bowel movement. General: She is awake, alert, and oriented x3. No acute distress. Gastrointestinal: Soft, minimally distended, mildly tender diffusely. No rebound or guarding. She does have some bowel sounds present. LABORATORY DATA: CBC and metabolic profile were reviewed and unremarkable. IMAGING: Her abdominal x-ray today shows improvement of gaseous distention of small bowel and colon. ASSESSMENT AND PLAN: A 73-year-old female with small-bowel obstruction that appears to be partial and improving. We will get a small-bowel series today. If that is clear, then we will remove the nasogastric tube, and begin to advance the diet as tolerated. cc: Joseph Ramirez MD
[2019-06-05] MEDS: REGLAN IV SCH ×2 (18:43→22:09)
--- NOTE | 2019-06-05 20:00 | Diag Imaging Result Doc PS360 ---
EXAM: SMALL BOWEL SERIES ONLY HISTORY: sbo TECHNIQUE: Small bowel series, nine views COMPARISON: None. FINDINGS: Oral contrast was used to fill the stomach and small bowel through the patient's nasogastric tube. Transit time through the small bowel occurred between six and eight hours. No distinct small bowel mass or stricture. Normal mucosal pattern. IMPRESSION: No focal small bowel abnormality. Electronically signed by Cm Cali 06/05/2019 7:58 PM
[2019-06-06] MEDS: ZOFRAN IV PRN ×2 (02:48→08:45)
[2019-06-06] MEDS: REGLAN IV SCH ×5 (03:41→23:12)
[2019-06-06] MEDS: NS 1,000 ML IV SCH ×2 (03:41→17:57)
[2019-06-06] MEDS: CHLORASEPTIC SPRAY MT PRN (03:41)
[2019-06-06] MEDS: DILAUDID IV PRN (04:49)
[2019-06-06] MEDS ORDERED: IMITREX PO PRN (07:13)
[2019-06-06] MEDS ORDERED: MELATONIN PO PRN (07:13)
--- NOTE | 2019-06-06 07:31 | GENERAL SURGERY PROGRESS NOTE ---
DATE: 06/06/2019 SUBJECTIVE: The patient complains of abdominal pain, but is now down to a 7, which is the lowest so far since she has been admitted. She says she has some nausea but no vomiting. She denies flatus or bowel movement. OBJECTIVE: Vital signs: T-max 100.5 degrees, pulse 94, respirations 18, blood pressure 137/61, O2 saturation 99%. NG tube had 600 total yesterday but it was clamped most of the day for her small bowel series and since late last night, this morning it put out 450 mL. General: She is awake, alert, no acute distress. Gastrointestinal: Soft, mildly tender. No rebound or guarding. She does have bowel sounds. LABORATORY DATA: Pending. IMAGING: Her small bowel x-ray series yesterday shows transit through the small bowel to the colon between 6 to 8 hours without any distinct small bowel mass, stricture or mechanical obstruction. ASSESSMENT AND PLAN: A 73-year-old female with partial small-bowel obstruction which is likely improving. We will discontinue the NG tube and start on clear liquids and monitor how she tolerates this. cc: Joseph Ramirez MD
[2019-06-06 07:57] LABS: HEMATOCRIT 29.5 % (37.0-47.0); HEMOGLOBIN 8.8 g/dL (12.0-16.0); LYMPH# 1.21 X1000 (1.2-3.4); LYMPH% 14.4 % (20.5-51.1); MCH 29.9 PG (27-31); MCHC 29.8 g/dL (33-37); MCV 100.3 FL (81-99); MONO# 0.67 X1000 (0.11-0.59); MPV 10.5 FL (7.4-10.4); NEUT# 6.53 X1000 (1.4-6.5); NEUT% 77.6 % (42.2-75.2); PLT 191 X1000 (130-400); RBC 2.94 XMIL (4.2-5.4); RDW 13.5 % (11.5-14.5); WBC 8.41 X1000 (4.8-10.8)
--- NOTE | 2019-06-06 08:05 | Diag Imaging Result Doc PS360 ---
EXAM: FLAT/UPRIGHT ABD/1 VIEW CHEST 06/06/2019 HISTORY: sbo TECHNIQUE: Flat and upright abdomen with AP chest COMMENT: There is barium throughout the colon. There is an NG tube in the stomach. There is barium in the appendix which is normal in appearance. There is ill-defined opacity present in the right base and increased interstitial opacities bilaterally. Compared to 06/05/2019 the lungs are better expanded but the interstitial opacities are worse. There may be more pleural fluid on the right. IMPRESSION: 1. No evidence of small bowel obstruction. 2. Right pleural effusion. Atelectasis versus pneumonia right lower lobe. 3. Interstitial pulmonary edema. Electronically signed by Keith Tafoya 06/06/2019 8:03 AM
[2019-06-06 08:13] LABS: CALCIUM 8.2 mg/dL (8.8-10.2); CREATININE 1.7 mg/dL (0.5-0.9); POTASSIUM 4.4 mmol/L (3.5-5.1)
[2019-06-06 08:26] LABS: BANDS 2 % (0-1); LYMPHS 24 % (21-51); MONO 4 % (1-9); SEGS 68 % (42-75)
[2019-06-06] MEDS ORDERED: NS 1,000 ML IV ONE (10:31)
[2019-06-06] MEDS: PROZAC PO SCH (13:28)
[2019-06-06] MEDS: TOPROL XL PO SCH (13:28)
[2019-06-06] MEDS: SINEMET 25/100 PO SCH (20:10)
[2019-06-06] MEDS: MELATONIN PO PRN (20:11)
[2019-06-07] MEDS: NS 1,000 ML IV SCH ×4 (01:47→22:15)
[2019-06-07 05:55] LABS: BASO# 0.01 X1000 (0.0-0.2); BASO% 0.1 % (0.0-0.8); EOS# 0.02 X1000 (0.0-0.7); EOS% 0.3 % (0.0-10.0); HEMATOCRIT 26.1 % (37.0-47.0); LYMPH# 1.17 X1000 (1.2-3.4); LYMPH% 15.1 % (20.5-51.1); MCH 29.9 PG (27-31); MCHC 30.7 g/dL (33-37); MCV 97.4 FL (81-99); MONO# 0.62 X1000 (0.11-0.59); NEUT# 5.95 X1000 (1.4-6.5); NEUT% 76.5 % (42.2-75.2); PLT 140 X1000 (130-400); RBC 2.68 XMIL (4.2-5.4); RDW 12.8 % (11.5-14.5); WBC 7.77 X1000 (4.8-10.8)
[2019-06-07 06:02] LABS: CALCIUM 8.1 mg/dL (8.8-10.2); CREATININE 1.4 mg/dL (0.5-0.9)
[2019-06-07] MEDS: REGLAN IV SCH ×4 (06:05→22:13)
[2019-06-07] MEDS: TOPROL XL PO SCH (08:32)
[2019-06-07] MEDS: PROZAC PO SCH (08:32)
[2019-06-07] MEDS ORDERED: BLISTEX MEDICATED BERRY LIP BALM TOP PRN (08:34)
[2019-06-07] MEDS ORDERED: LASIX IV ONE (09:14)
--- NOTE | 2019-06-07 09:52 | GENERAL SURGERY PROGRESS NOTE ---
DATE: 06/07/2019 SUBJECTIVE: The patient complains of shortness of breath. She denies abdominal pain, nausea, or vomiting. She did pass some flatus overnight and tolerated clear liquids. OBJECTIVE: She is afebrile. Vital signs are stable. No more fever recorded over the last 24 hours. Urine output: She is voiding regularly. General: She is awake, alert, oriented x4. No acute distress. CV: Regular rate and rhythm. Respiratory: She has some decreased breath sounds in the right base. No increased work of breathing. Incentive spirometer effort is poor. She is pulling slightly over 500 mL. Gastrointestinal: Soft, nontender, nondistended. She does have bowel sounds. LABORATORY: White blood cell count 7.7, hemoglobin 8, hematocrit 26. Electrolytes reviewed and notable for BUN 35, creatinine 1.4. ASSESSMENT AND PLAN: A 73-year-old female with partial small-bowel obstruction that appears to be resolving or nearly resolved. We are going to advance her diet as tolerated. She is having some hypoxia and shortness of breath and there is imaging concerning for developing infiltrate or pleural effusion in the right lower lobe. I will give her a dose of Lasix today and we have encouraged more incentive spirometer use and ambulation. We will recheck a chest x-ray in the morning as well as her electrolyte panel and CBC. cc: Joseph Ramirez MD
[2019-06-07] MEDS: MELATONIN PO PRN (22:13)
[2019-06-07] MEDS: SINEMET 25/100 PO SCH (22:13)
[2019-06-07] MEDS: DILAUDID IV PRN (22:14)
[2019-06-08] MEDS: NS 1,000 ML IV SCH (03:38)
[2019-06-08] MEDS: REGLAN IV SCH (04:43)
[2019-06-08 06:03] LABS: BASO# 0.01 X1000 (0.0-0.2); BASO% 0.1 % (0.0-0.8); EOS# 0.07 X1000 (0.0-0.7); HEMOGLOBIN 8.5 g/dL (12.0-16.0); IMM GRAN# 0.09 X1000 (0.0-0.04); IMM GRAN% 1.3 % (0.0-0.5); LYMPH# 1.27 X1000 (1.2-3.4); LYMPH% 18.8 % (20.5-51.1); MCH 29.4 PG (27-31); MCHC 31.5 g/dL (33-37); MCV 93.4 FL (81-99); MONO# 0.55 X1000 (0.11-0.59); MONO% 8.1 % (1.7-9.3); MPV 10.7 FL (7.4-10.4); NEUT# 4.77 X1000 (1.4-6.5); NEUT% 70.7 % (42.2-75.2); PLT 169 X1000 (130-400); RBC 2.89 XMIL (4.2-5.4); RDW 12.7 % (11.5-14.5); WBC 6.76 X1000 (4.8-10.8)
[2019-06-08 06:20] LABS: CALCIUM 7.2 mg/dL (8.8-10.2); POTASSIUM 3.5 mmol/L (3.5-5.1)
[2019-06-08 07:25] VITALS: BP 131/56
--- NOTE | 2019-06-08 09:20 | Diag Imaging Result Doc PS360 ---
EXAM: CHEST-2 VIEWS 06/08/2019 HISTORY: sob TECHNIQUE: PA and lateral chest COMMENT: There is bilateral pleural fluid. This appears to be slightly increased on the left. There is also increased platelike atelectasis on the left side. The interstitial opacities and Arsalan B lines present on the right on the previous study have diminished. IMPRESSION: Improved pulmonary edema. Worsened left pleural effusion and basilar atelectasis. Bilateral pleural effusions. Electronically signed by Keith Tafoya 06/08/2019 9:18 AM
[2019-06-08] MEDS: PROZAC PO SCH (09:48)
[2019-06-08] MEDS: TOPROL XL PO SCH (09:48)
--- NOTE | 2019-06-08 13:54 | GENERAL SURGERY PROGRESS NOTE ---
DATE: 06/08/2019 SUBJECTIVE: The patient reports no more abdominal pain, nausea, or vomiting. She also has no more shortness of breath. She is voiding, has had bowel movements and passed flatus and is tolerating her diet. OBJECTIVE: She is afebrile. Vital signs are stable. O2 saturation 97% recorded as room air.General: She is awake, alert, oriented x3. No acute distress. GI: Soft nontender, nondistended. Good bowel sounds present. Respiratory: She has clear bilateral breath sounds. No increased work of breathing. IMAGING: Her chest x-ray this morning appears to show some continued blunting of the costophrenic angle on the right side and perhaps some on the left side. No new consolidations or significant pulmonary edema. ASSESSMENT AND PLAN: 73-year-old female with small-bowel obstruction, now resolved. She has a right pleural effusion and probable atelectasis. We will attempt to wean her off the oxygen today. If that is successful, we plan to discharge her home. She should follow up with her pressure tester operator and sleep doctor for chronic pulmonary function issues and possible need for oxygen at home. cc: Joseph Ramirez MD
--- NOTE | 2019-07-10 16:55 | DISCHARGE SUMMARY ---
ADMISSION DATE: 06/03/2019 DISCHARGE DATE: 06/08/2019 ADMITTING PHYSICIAN: Joseph Ramirez. ADMITTING DIAGNOSIS: 1. Small bowel obstruction. 2. Diabetes. 3. Hypertension. 4. Coronary artery disease. 5. Obstructive sleep apnea. 6. Hypercholesterolemia. DISCHARGE DIAGNOSES: 1. Small bowel obstruction. 2. Diabetes. 3. Hypertension. 4. Coronary artery disease. 5. Obstructive sleep apnea. 6. Hypercholesterolemia. PROCEDURES: None. HOSPITAL COURSE: The patient presented the emergency room with abdominal pain, nausea, vomiting and diarrhea. Physical exam and imaging were concerning for small bowel obstruction. She was admitted, made NPO, an NG tube was placed and she was rehydrated. The next day her pain had improved some. She still had some nausea and vomiting. Her abdomen was no longer distended but was moderately tender. The rebound and guarding had resolved. The x-ray showed improvement in the small bowel gas distention. The following day she continued to have some slight improvement in pain, the nausea had improved. She had started to pass gas. Her abdomen exam was improving. Her abdominal x-ray again showed improvement. A small bowel followthrough was ordered which showed the oral contrast passing through the small bowel into the colon in 6 to 8 hours. There was no distinct mass or stricture. On 06/06/2019, her pain level continued to improve. Her NG tube was removed and she was started on a clear liquid diet. The following day on 06/07/2019 she denied abdominal pain, nausea, or vomiting. She was passing gas, tolerating clear liquids. She did have some shortness of breath and hypoxia. The imaging was concerning for the development of an infiltrate or pleural effusion. She was given a dose of Lasix and encouraged to use incentive spirometer and to ambulate. The next day her chest x-ray showed improved pulmonary edema but a worsened left pleural effusion and basilar atelectasis. However on exam she had no more abdominal pain, nausea or vomiting. She had no more shortness of breath. She was having bowel movements and passing gas and tolerating her diet. Her chest was clear on exam. No increased work of breathing. We were able to wean her off the oxygen successfully and she was discharged home in stable condition. DISCHARGE MEDICATIONS: She will continue her home Imitrex, Lipitor, Sinemet, Benadryl, fluoxetine, glipizide, Toprol, Phenergan and melatonin. Followup appointment with Dr. Ramirez as needed as well as her primary care physician Dr. Luis Nelson. cc: Joseph Ramirez MD
== END 2019-06-08 13:02 | disposition home health service (06) | DRG 389 ==
LOC: P.ED 13:27 → 4N 16:14
PROVIDERS: ADMIT Surgery; ATTEND Surgery